=== PATIENT | female | born 1970 | race Caucasian/White ===

== ENCOUNTER 2023-07-17 13:30 | Outpatient (OUT) | payer OTHER, SELFPAY ==
--- NOTE | 2023-07-17 | XR_ITS ---
[address] [address] Patient Name: ABDI COPELAND MRN: [id number] date: 1970 Sex: F Assigned Patient Location: [facility] Current Patient Location: [facility] Accession/Order Number: [id number] Exam Date: 07/17/2023 14:05 Report Date: 07/18/2023 00:00 At the request of: ADALBERTO GOODMAN Procedure: XR foot FEDERICO min 3V EXAMINATION: XR foot FEDERICO min 3V HISTORY: BILATERAL FOOT PAIN COMPARISON: XR foot left 04/20/2019 FINDINGS: RIGHT FINDINGS: BONES: Moderate degenerative changes the first metatarsophalangeal joint. Small calcaneal plantar spur. SOFT TISSUES: No visible soft tissue swelling. OTHER: Negative. LEFT FINDINGS: BONES: Marked degenerative changes the first metatarsophalangeal joint. Small calcaneal plantar spur. No fracture or dislocation. SOFT TISSUES: No visible soft tissue swelling. OTHER: Negative. XR/XR foot FEDERICO min 3V IMPRESSION: RIGHT CONCLUSION: First metatarsophalangeal joint moderate degenerative changes favoring osteoarthritis. LEFT CONCLUSION: First metatarsophalangeal joint marked degenerative changes favoring osteoarthritis. Electronically authenticated by: ELIE GONZALEZ Date: 07/18/2023 00:00
== END 2023-07-17 13:31 | disposition home or self-care (01) ==
LOC: RAD 13:31
PROVIDERS: Visit Provider Podiatrist Foot & Ankle Surgery
DX: M79.675 Pain in left toe(s) (principal); M79.671 Pain in right foot
CPT/HCPCS: 73630